=== PATIENT | female | born 1950 | race Caucasian/White ===

== ENCOUNTER → 2016-10-31 | Outpatient (CLI) | payer MEDICARE ==
[~2016-10-31] MED LIST: ASPI-933 PO; ATOR80TA PO; CEFU500T5 PO; CLOP75TA PO; ENLP2.5T PO; MTP25TSR PO; OMEG1CAP74 PO; TICA90TA PO
== END ==
LOC: CARD 13:05
PROVIDERS: ATTEND Internal Medicine Cardiovascular Disease
DX: I25.10 Atherosclerotic heart disease of native coronary artery without angina pectoris (principal); R07.89 Other chest pain; E78.2 Mixed hyperlipidemia; I10 Essential (primary) hypertension
CPT/HCPCS: 93306